=== PATIENT | male | born 1980 | race Caucasian/White ===

== ENCOUNTER 2016-08-12 22:39 | Inpatient (IN) | payer OTHER ==
[~2016-08-12] VITALS: Ht 182.9 cm; Wt 126.7 kg
[2016-08-12] MEDS ORDERED: ceFAZolin 2 GM PREMIX 50 ML ONE (22:40)
[2016-08-12] MEDS ORDERED: DIPHTH/TETANUS/ACEL PERTUSSIS (BOOSTER) 0.5 ML VIAL/PFS IM ONE (22:40)
[2016-08-12] MEDS ORDERED: IOHEXOL 350 MG/ML 10 ML VIAL (for RAD DIAG) IV ONE (22:56)
[2016-08-12 23:00] LABS: I-STAT POTASSIUM 3.3 MMOL/L (3.5-4.9)
[2016-08-12 23:01] LABS: AUTOMATED NEUTROPHIL # 22.4 TH/MM3 (1.8-7.7); BASOPHIL # 0.3 TH/MM3 (0-0.2); BASOPHIL % 1.1 % (0.0-2.0); EOSINOPHIL # 0.3 TH/MM3 (0-0.4); HEMATOCRIT 46.3 % (39.0-51.0); LYMPH % 14.1 % (9.0-44.0); LYMPHOCYTE # 3.9 TH/MM3 (1.0-4.8); MEAN CELL VOLUME 87.4 FL (80.0-100.0); MEAN CORPUSCULAR HEMOGLOBIN 29.3 PG (27.0-34.0); MEAN CORPUSCULAR HGB CONC 33.5 % (32.0-36.0); NEUT % 79.8 % (16.0-70.0); PLATELET COUNT 270 TH/MM3 (150-450); RED CELL DISTRIBUTION WIDTH 13.8 % (11.6-17.2)
[2016-08-12 23:05] LABS: HEMO FLAGS AUTO DIFF
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
[2016-08-12 23:11] LABS: PROTHROMBIN TIME - PATIENT 11.5 SEC (9.8-11.6)
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
[2016-08-12 23:29] LABS: BANDS 14 % (0-6); EOSINOPHILS 1 % (0-4); METAMYELOCYTES 1 % (0-1); POLYS (SEG NEUTROPHILS) 67 % (16-70); WBC DIFF SAMPLE 100
[2016-08-12 23:30] LABS: PLATELET ESTIMATE SMEAR NORMAL (NORMAL); PLATELET MORPHOLOGY NORMAL (NORMAL); SCAN/DIFF FINAL DIFF MANUAL
[2016-08-12] MEDS ORDERED: MISCELLANEOUS NURSING INFORMATION XX SCH (23:30)
[2016-08-12] MEDS ORDERED: ONDANSETRON HCL 4 MG/2 ML VIAL IV PRN (23:30)
[2016-08-12] MEDS ORDERED: SODIUM CHLORIDE 0.9% FLUSH 10 ML FLUSH IV FLUSH PRN (23:30)
[2016-08-12] MEDS ORDERED: CHLORHEXIDINE GLUCONATE 2 % 1 PACK (2 CLOTHS) TOP PRN (23:30)
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
[2016-08-12] MEDS: HYDROmorphone HCL PF 1 MG/ML VIAL IVP PRN (23:47)
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
[2016-08-13] MEDS ORDERED: SILVER SULFADIAZINE 1% CR 50 GM JAR TOPICAL ONE
[2016-08-13] MEDS: LACTATED RINGER'S 1000 ML INJ 1,000 ML IV SCH ×2 (00:58→07:27)
[2016-08-13] MEDS: ENOXAPARIN SODIUM 30 MG/0.3 ML SYRINGE SQ SCH ×2 (01:00→12:26)
[2016-08-13] MEDS: CHLORHEXIDINE GLUCONATE 2 % 1 PACK (2 CLOTHS) TOP SCH (02:26)
[2016-08-13] MEDS ORDERED: SODIUM CHLORID 0.9% 500 ML IV PRN (03:00)
[2016-08-13] MEDS ORDERED: LACTATED RINGER'S 1000 ML IV PRN (03:00)
[2016-08-13] MEDS ORDERED: METOPROLOL TARTRATE 25 MG TAB PO PRN (03:00)
[2016-08-13] MEDS ORDERED: CHLORHEXIDINE GLUCONATE 2 % 1 PACK (2 CLOTHS) TOPICAL PRN (03:00)
[2016-08-13] MEDS ORDERED: POVIDONE IODINE 5% (ANTISEPSIS KIT) 4 APPLICATIONS EACH NARE PRN (03:00)
[2016-08-13] MEDS ORDERED: INSULIN HUMAN REGULAR 1,000 UNITS/10 ML VIAL SQ PRN (03:00)
[2016-08-13] MEDS: HYDROmorphone HCL PF 1 MG/ML VIAL IVP PRN ×3 (03:20→21:12)
[2016-08-13 03:52] VITALS: BP 123/76; PULSE 85; RESP 19; TEMP 96; O2SAT 94
[2016-08-13 06:44] LABS: AUTOMATED NEUTROPHIL # 16.6 TH/MM3 (1.8-7.7); BASOPHIL % 0.2 % (0.0-2.0); HEMATOCRIT 46.1 % (39.0-51.0); HEMO FLAGS DIFF FINAL; LYMPH % 3.5 % (9.0-44.0); LYMPHOCYTE # 0.7 TH/MM3 (1.0-4.8); MEAN CELL VOLUME 87.1 FL (80.0-100.0); MEAN CORPUSCULAR HEMOGLOBIN 29.7 PG (27.0-34.0); MEAN CORPUSCULAR HGB CONC 34.1 % (32.0-36.0); MONO % 8.1 % (0.0-8.0); NEUT % 88.2 % (16.0-70.0); PLATELET COUNT 248 TH/MM3 (150-450); RED BLOOD COUNT 5.29 MIL/MM3 (4.50-5.90); WHITE BLOOD COUNT 18.8 TH/MM3 (4.0-11.0)
[2016-08-13] MEDS: METHOCARBAMOL 500 MG TAB PO SCH ×2 (07:00→21:16)
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
[2016-08-13 07:08] LABS: BICARBONATE 23.2 MEQ/L (21.0-32.0); POTASSIUM 4.5 MEQ/L (3.5-5.1)
[2016-08-13 08:00] VITALS: BP 148/94; PULSE 104; RESP 17; TEMP 97.3; O2SAT 93
[2016-08-13] MEDS: LIDOCAINE HCL 5% PATCH T-DERMAL SCH (09:00)
[2016-08-13] MEDS: FAMOTIDINE 20 MG TAB PO SCH ×2 (09:00→21:16)
[2016-08-13] MEDS: DOCUSATE SODIUM 100 MG/10 ML UDC PO SCH ×2 (09:00→21:16)
--- NOTE | 2016-08-13 09:16 | RADRPT ---
EXAM DATE/TIME: 08/13/2016 08:31 [facility] COMPARISON: CT THORAX W CONTRAST, August 12, 2016, 22:56. CHEST SINGLE AP, August 12, 2016, 22:32. INDICATIONS : Short of breath MEDICAL HISTORY : None. SURGICAL HISTORY : None. ENCOUNTER: Initial ACUITY: 2 days PAIN SCORE: Non-responsive. LOCATION: Bilateral chest FINDINGS: A single view of the chest demonstrates the lungs to be symmetrically aerated without evidence of mas s, infiltrate or effusion. The cardiomediastinal contours are unremarkable. Osseous structures demo nstrate comminuted right scapular fracture with displaced fragments seen, right sixth rib fracture. CONCLUSION: Right scapula and sixth rib fracture. Clear lungs. Kaden Moulton MD on August 13, 2016 at 9:14 Board Certified Radiologist. This report was verified electronically.
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
[2016-08-13] MEDS ORDERED: PROPOFOL 200 MG/20 ML AMP IV ONE (10:13)
[2016-08-13] MEDS ORDERED: ONDANSETRON HCL 4 MG/2 ML VIAL IV PUSH ONE (10:13)
[2016-08-13] MEDS ORDERED: LACTATED RINGER'S 1000 ML INJ 1,000 ML IV ONE (10:14)
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
[2016-08-13 11:51] VITALS: BP 128/83; PULSE 107; RESP 17; TEMP 98.6; O2SAT 92
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
[2016-08-13] MEDS: BACITRACIN TOP OINT 15 GM TUBE TOPICAL SCH (13:00)
--- NOTE | 2016-08-13 14:24 | OTSOAPIP ---
RECEIVED ORDERS FOR OCCUPATIONAL THERAPY FROM SUELLEN ROBERTSON. ATTEMPTED TO SEE PATIENT, HOWEVER PER MARC HENDRICKSON, PATIENT JUST GOT PAIN UNDER CONTROL AND CALM. PATIENT IS ALSO SCHEDULED FOR HAND SURGERY THIS DATE. WILL HOLD AND FOLLOW UP WITH PATIENT FOR EVALUATION POST SURGERY. INTERDISCIPLINARY COMMUNICATION: REVIEWED ELECTRONIC MEDICAL RECORD, SPOKE WITH MARC HENDRICKSON Therapist: Vika Rivers, OTR/L Signature on file
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
[2016-08-13] MEDS ORDERED: BUPIVACAINE HCL PF 0.5% 30 ML VIAL ONE (15:45)
[2016-08-13] MEDS ORDERED: LIDOCAINE HCL 1% 50 ML VIAL ONE (15:46)
[2016-08-13] MEDS ORDERED: ceFAZolin INJ 1,000 MG VIAL IV ONE (16:35)
[2016-08-13] MEDS ORDERED: ACETAMINOPHEN 1000 MG/100 ML VIAL IV ONE (16:55)
[2016-08-13] MEDS ORDERED: SODIUM CHLORIDE 0.9% FLUSH 5 ML FLUSH IVF PRN (17:45)
--- NOTE | 2016-08-13 17:48 | HHI.PR ---
Immediate Post Op Note Procedure Date: Aug 13, 2016 Pre Op Diagnosis: (1) Closed right hand fracture Post Op Diagnosis: (1) Closed right hand fracture Surgeon: Radha Gil Tarp Repairer(s): None. Procedure: Closed reduction and percutaneous fixation of the right thumb, index, middle, ring and fifth carpometacarpal fracture dislocations. Anesthesia: General Drains: None Tourniquet time (min at mmHg) NA Patient to: PACU Patient Condition: Good Implant/Devices: SEE IMPLANT LOG (if applicable) Date/Time of Procedure: SEE SURGICAL CARE RECORD Radha Gil MD Aug 13, 2016 17:48
[2016-08-13] MEDS ORDERED: DO NOT ADM ANY ANTICOAGULANT DRUGS PRN (17:51)
[2016-08-13] MEDS: DEXT 5%-NACL 0.45% 1000 ML INJ 1,000 ML IV SCH (18:00)
[2016-08-13] MEDS ORDERED: fentaNYL CITRATE 250 MCG/5 ML AMP ONE (18:08)
[2016-08-13] MEDS: SODIUM CHLORIDE 0.9% FLUSH 5 ML FLUSH IVF SCH (21:00)
[2016-08-13] MEDS: MAGNESIUM HYDROXIDE SUSP 30 ML CUP PO SCH (21:16)
[2016-08-13 21:42] VITALS: BP 112/86; PULSE 97; RESP 22; TEMP 97.3; O2SAT 92
[2016-08-13] MEDS ORDERED: HALOPERIDOL LACTATE 5 MG/ML AMP IV PRN ×2 (23:15)
[2016-08-14] VITALS (7 sets, daily range): BP systolic 116–148; BP diastolic 76–86; PULSE 88–120; RESP 16–22; TEMP 97.9–99.4; O2SAT 88–96
[2016-08-14] MEDS: HYDROmorphone HCL PF 1 MG/ML VIAL IVP PRN ×7 (00:15→23:59)
[2016-08-14] MEDS: ENOXAPARIN SODIUM 30 MG/0.3 ML SYRINGE SQ SCH ×3 (00:16→23:59)
[2016-08-14] MEDS: DEXT 5%-NACL 0.45% 1000 ML INJ 1,000 ML IV SCH ×3 (03:19→23:43)
[2016-08-14] MEDS: CHLORHEXIDINE GLUCONATE 2 % 1 PACK (2 CLOTHS) TOP SCH (04:00)
[2016-08-14] MEDS: METHOCARBAMOL 500 MG TAB PO SCH ×3 (04:37→21:38)
[2016-08-14 05:57] LABS: AUTOMATED NEUTROPHIL # 12.6 TH/MM3 (1.8-7.7); BASOPHIL # 0.1 TH/MM3 (0-0.2); BASOPHIL % 0.4 % (0.0-2.0); EOSINOPHIL % 0.2 % (0.0-4.0); HEMO FLAGS DIFF FINAL; LYMPH % 11.6 % (9.0-44.0); LYMPHOCYTE # 1.9 TH/MM3 (1.0-4.8); MEAN CELL VOLUME 87.6 FL (80.0-100.0); MEAN CORPUSCULAR HEMOGLOBIN 29.8 PG (27.0-34.0); MONO % 9.9 % (0.0-8.0); NEUT % 77.9 % (16.0-70.0); PLATELET COUNT 194 TH/MM3 (150-450); RED BLOOD COUNT 4.68 MIL/MM3 (4.50-5.90); RED CELL DISTRIBUTION WIDTH 14.1 % (11.6-17.2); WHITE BLOOD COUNT 16.3 TH/MM3 (4.0-11.0)
[2016-08-14 06:32] LABS: ALKALINE PHOSPHATASE 53 U/L (45-117); ALT (GPT) 53 U/L (12-78); ANION GAP 7 MEQ/L (5-15); AST (GOT) 67 U/L (15-37); BLOOD UREA NITROGEN 24 MG/DL (7-18); CHLORIDE 107 MEQ/L (98-107); GLOMERULAR FILTRATION RATE 82 ML/MIN (>89); MAGNESIUM 2.6 MG/DL (1.5-2.5); POTASSIUM 4.1 MEQ/L (3.5-5.1); SODIUM (NA) 139 MEQ/L (136-145); TOTAL BILIRUBIN ADULT 0.8 MG/DL (0.2-1.0)
--- NOTE | 2016-08-14 06:34 | RADRPT ---
EXAM DATE/TIME: 08/14/2016 05:32 [facility] COMPARISON: CHEST SINGLE AP, August 13, 2016, 8:31. INDICATIONS : Shortness of breath, possible pulmonary disease. MEDICAL HISTORY : None. SURGICAL HISTORY : None. ENCOUNTER: Subsequent ACUITY: 3 days PAIN SCORE: 7/10 LOCATION: Bilateral chest FINDINGS: The cardiac silhouette is enlarged in transverse diameter. There is prominence of the central pulmona ry vasculature with indistinct vascular margins compatible with vascular congestion but no evidence o f overt failure. There is subsegmental atelectasis in the left base. CONCLUSION: 1. Cardiomegaly and findings of vascular congestion without overt failure. There has been no signific ant change when compared to the prior exam. Rian Phillips MD on August 14, 2016 at 6:31 Board Certified Radiologist. This report was verified electronically.
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
[2016-08-14] MEDS: DOCUSATE SODIUM 100 MG/10 ML UDC PO SCH ×2 (08:56→21:38)
[2016-08-14] MEDS: FAMOTIDINE 20 MG TAB PO SCH ×2 (08:56→21:38)
[2016-08-14] MEDS: LACTULOSE SYRUP 20 GM/30 ML CUP PO SCH (08:56)
[2016-08-14] MEDS: SODIUM CHLORIDE 0.9% FLUSH 5 ML FLUSH IVF SCH ×2 (09:00→21:00)
[2016-08-14] MEDS: BACITRACIN TOP OINT 15 GM TUBE TOPICAL SCH ×2 (09:16→21:36)
[2016-08-14] MEDS: LIDOCAINE HCL 5% PATCH T-DERMAL SCH (09:36)
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
--- NOTE | 2016-08-14 12:59 | RADRPT ---
EXAM DATE/TIME: 08/14/2016 12:19 [facility] COMPARISON: No previous studies available for comparison. INDICATIONS : RETIREMENT. MEDICAL HISTORY : None. SURGICAL HISTORY : None. ENCOUNTER: Subsequent ACUITY: 1 day PAIN SCORE: 10/10 LOCATION: Left Humerus FINDINGS: No definite fractures, or dislocations are identified. No definite lytic or sclerotic lesion is seen . CONCLUSION: Unremarkable study. Jennifer Anand MD on August 14, 2016 at 12:57 Board Certified Radiologist. This report was verified electronically.
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
--- NOTE | 2016-08-14 13:00 | RADRPT ---
EXAM DATE/TIME: 08/14/2016 12:25 [facility] COMPARISON: No previous studies available for comparison. INDICATIONS : INTERMEDIATE. left shoulder pain. MEDICAL HISTORY : None. SURGICAL HISTORY : None. ENCOUNTER: Subsequent ACUITY: 3 days PAIN SCORE: Non-responsive. LOCATION: Left Shoulder FINDINGS: No definite fractures, or dislocations are identified. No definite lytic or sclerotic lesion is seen . CONCLUSION: Unremarkable study. Jennifer Anand MD on August 14, 2016 at 12:58 Board Certified Radiologist. This report was verified electronically.
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
--- NOTE | 2016-08-14 13:11 | RADRPT ---
EXAM DATE/TIME: 08/14/2016 12:44 [facility] COMPARISON: CT BRAIN W/O CONTRAST, August 12, 2016, 22:56. CT FACIAL BONES W/O CONTRAST, August 14, 2016, 7:55. INDICATIONS : Increased confusion. RADIATION DOSE: 56.35 CTDIvol (mGy) MEDICAL HISTORY : PTSD, TBI. SURGICAL HISTORY : None. ENCOUNTER: Initial ACUITY: 1 day PAIN SCALE: Non-responsive LOCATION: cranial TECHNIQUE: Multiple contiguous axial images were obtained of the head. Using automated exposure control and adj ustment of the mA and/or kV according to patient size, radiation dose was kept as low as reasonably a chievable to obtain optimal diagnostic quality images. FINDINGS: There is no evidence for intracranial hemorrhage, mass effect, mass lesions, edema, or extra-axial fl uid collections. The visualized bony structures appear intact. The ventricles are normal size for t he patient's age. There are no signs of acute infarction for technique. There is a fracture of the i ntralobar rim on the right discussed on the patient's prior facial CT. CONCLUSION: There is no evidence of any significant hemorrhage or mass effect. Jennifer Anand MD on August 14, 2016 at 13:07 Board Certified Radiologist. This report was verified electronically.
[2016-08-14] MEDS ORDERED: RESP: ALBUTEROL 2.5 MG/IPRATROPIUM 0.5 MG NEB (PRN) NEB (14:30)
--- NOTE | 2016-08-14 17:32 | OTSOAPIP ---
PATIENT IS S/P SURGERY. ATTEMPTED TO SEE PATIENT, HOWEVER MARC CARLOS REQUESTS TO HOLD THERAPY PATIENT HAS BEEN COMBATIVE AND RESTLESS ALL DAY. WILL FOLLOW UP NEXT DAY ABLE. INTERDISCIPLINARY COMMUNICATION: REVIEWED ELECTRONIC MEDICAL RECORD, SPOKE WITH RN Therapist: Vika Rivers, OTR/L Signature on file
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
[2016-08-14] MEDS: RESP: ALBUTEROL 2.5 MG/IPRATROPIUM 0.5 MG NEB (SCH) NEB (19:02)
[2016-08-14] MEDS: MAGNESIUM HYDROXIDE SUSP 30 ML CUP PO SCH (21:38)
[2016-08-15] VITALS (8 sets, daily range): BP systolic 141–147; BP diastolic 76–86; PULSE 83–103; RESP 16–18; TEMP 96.1–99.4; O2SAT 92–96
[2016-08-15] MEDS: CHLORHEXIDINE GLUCONATE 2 % 1 PACK (2 CLOTHS) TOP SCH (02:43)
[2016-08-15] MEDS: HYDROmorphone HCL PF 1 MG/ML VIAL IVP PRN ×3 (04:36→23:16)
[2016-08-15] MEDS: METHOCARBAMOL 500 MG TAB PO SCH ×3 (04:37→21:26)
--- NOTE | 2016-08-15 06:43 | RADRPT ---
EXAM DATE/TIME: 08/15/2016 05:39 [facility] COMPARISON: CHEST SINGLE AP, August 14, 2016, 5:32. INDICATIONS : Shortness of breath, possible pulmonary disease. MEDICAL HISTORY : None. SURGICAL HISTORY : None. ENCOUNTER: Subsequent ACUITY: 4 - 6 days PAIN SCORE: 10/10 LOCATION: Bilateral chest FINDINGS: The cardiac silhouette is normal in transverse diameter. There is left lower lobe atelectasis versus pneumonia. There is elevation of the right hemidiaphragm. The right lung is free of acute parenchymal opacity. CONCLUSION: 1. Left lower lobe atelectasis versus pneumonia. There has been no significant change when compared t o the prior exam. Rian Phillips MD on August 15, 2016 at 6:41 Board Certified Radiologist. This report was verified electronically.
[2016-08-15 07:44] LABS: AUTOMATED NEUTROPHIL # 8.3 TH/MM3 (1.8-7.7); BASOPHIL % 0.4 % (0.0-2.0); EOSINOPHIL # 0.1 TH/MM3 (0-0.4); EOSINOPHIL % 0.5 % (0.0-4.0); HEMATOCRIT 36.4 % (39.0-51.0); HEMO FLAGS DIFF FINAL; LYMPH % 16.1 % (9.0-44.0); LYMPHOCYTE # 1.8 TH/MM3 (1.0-4.8); MEAN CELL VOLUME 86.7 FL (80.0-100.0); MEAN CORPUSCULAR HEMOGLOBIN 30.1 PG (27.0-34.0); MEAN CORPUSCULAR HGB CONC 34.7 % (32.0-36.0); MONO % 9.5 % (0.0-8.0); NEUT % 73.5 % (16.0-70.0); PLATELET COUNT 195 TH/MM3 (150-450); RED CELL DISTRIBUTION WIDTH 13.6 % (11.6-17.2); WHITE BLOOD COUNT 11.3 TH/MM3 (4.0-11.0)
[2016-08-15 08:06] LABS: ALT (GPT) 54 U/L (12-78); ANION GAP 6 MEQ/L (5-15); AST (GOT) 87 U/L (15-37); BLOOD UREA NITROGEN 18 MG/DL (7-18); CHLORIDE 105 MEQ/L (98-107); GLOMERULAR FILTRATION RATE 120 ML/MIN (>89); MAGNESIUM 2.4 MG/DL (1.5-2.5); POTASSIUM 4.1 MEQ/L (3.5-5.1); SODIUM (NA) 138 MEQ/L (136-145)
[2016-08-15 08:08] LABS: ALKALINE PHOSPHATASE 58 U/L (45-117)
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
[2016-08-15] MEDS: SODIUM CHLORIDE 0.9% FLUSH 5 ML FLUSH IVF SCH ×2 (09:00→21:00)
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
[2016-08-15] MEDS: RESP: ALBUTEROL 2.5 MG/IPRATROPIUM 0.5 MG NEB (SCH) NEB ×3 (09:39→20:13)
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
[2016-08-15] MEDS: DOCUSATE SODIUM 100 MG/10 ML UDC PO SCH ×2 (11:49→21:25)
[2016-08-15] MEDS: LACTULOSE SYRUP 20 GM/30 ML CUP PO SCH (11:49)
[2016-08-15] MEDS: LIDOCAINE HCL 5% PATCH T-DERMAL SCH (11:50)
[2016-08-15] MEDS: FAMOTIDINE 20 MG TAB PO SCH ×2 (11:50→21:26)
[2016-08-15] MEDS: BACITRACIN TOP OINT 15 GM TUBE TOPICAL SCH ×2 (11:50→21:00)
[2016-08-15] MEDS: ENOXAPARIN SODIUM 30 MG/0.3 ML SYRINGE SQ SCH ×2 (11:51→23:15)
[2016-08-15] MEDS: MAGNESIUM HYDROXIDE SUSP 30 ML CUP PO SCH (21:26)
[2016-08-16] VITALS: BP 127/81; PULSE 95; RESP 22; TEMP 98.7; O2SAT 93
[2016-08-16] MEDS: HYDROmorphone HCL PF 1 MG/ML VIAL IVP PRN ×2 (03:47→08:48)
[2016-08-16 04:00] VITALS: BP 142/97; PULSE 90; RESP 20; TEMP 97.6; O2SAT 93
[2016-08-16] MEDS: METHOCARBAMOL 500 MG TAB PO SCH ×3 (06:59→20:41)
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
[2016-08-16 07:47] LABS: AUTOMATED NEUTROPHIL # 5.7 TH/MM3 (1.8-7.7); BASOPHIL # 0.1 TH/MM3 (0-0.2); BASOPHIL % 0.9 % (0.0-2.0); EOSINOPHIL # 0.2 TH/MM3 (0-0.4); EOSINOPHIL % 1.8 % (0.0-4.0); HEMO FLAGS DIFF FINAL; LYMPH % 19.9 % (9.0-44.0); LYMPHOCYTE # 1.7 TH/MM3 (1.0-4.8); MEAN CELL VOLUME 87.2 FL (80.0-100.0); MEAN CORPUSCULAR HGB CONC 33.3 % (32.0-36.0); MONO % 10.1 % (0.0-8.0); NEUT % 67.3 % (16.0-70.0); PLATELET COUNT 232 TH/MM3 (150-450); RED BLOOD COUNT 4.35 MIL/MM3 (4.50-5.90); RED CELL DISTRIBUTION WIDTH 13.7 % (11.6-17.2); WHITE BLOOD COUNT 8.5 TH/MM3 (4.0-11.0)
[2016-08-16 08:00] VITALS: BP 140/76; PULSE 80; RESP 18; TEMP 97.7; O2SAT 93
[2016-08-16] MEDS ORDERED: BISACODYL 10 MG SUPP RECTAL ONE (08:00)
[2016-08-16] MEDS ORDERED: BISACODYL EC 5 MG TABEC PO ONE (08:00)
[2016-08-16 08:06] LABS: ALKALINE PHOSPHATASE 55 U/L (45-117); ALT (GPT) 48 U/L (12-78); ANION GAP 6 MEQ/L (5-15); AST (GOT) 44 U/L (15-37); BICARBONATE 28.7 MEQ/L (21.0-32.0); BLOOD UREA NITROGEN 22 MG/DL (7-18); CHLORIDE 104 MEQ/L (98-107); GLOMERULAR FILTRATION RATE 97 ML/MIN (>89); MAGNESIUM 2.5 MG/DL (1.5-2.5); POTASSIUM 3.8 MEQ/L (3.5-5.1); SODIUM (NA) 139 MEQ/L (136-145); TOTAL BILIRUBIN ADULT 0.9 MG/DL (0.2-1.0)
[2016-08-16] MEDS: RESP: ALBUTEROL 2.5 MG/IPRATROPIUM 0.5 MG NEB (SCH) NEB (08:34)
[2016-08-16] MEDS: DOCUSATE SODIUM 100 MG/10 ML UDC PO SCH ×2 (08:48→20:41)
[2016-08-16] MEDS: FAMOTIDINE 20 MG TAB PO SCH ×2 (08:48→20:41)
[2016-08-16] MEDS: LACTULOSE SYRUP 20 GM/30 ML CUP PO SCH (08:48)
[2016-08-16] MEDS: LIDOCAINE HCL 5% PATCH T-DERMAL SCH (08:49)
[2016-08-16] MEDS: BACITRACIN TOP OINT 15 GM TUBE TOPICAL SCH ×2 (08:49→21:00)
[2016-08-16] MEDS: POLYETHYLENE GLYCOL 17 GM PKG PO SCH (08:51)
[2016-08-16] MEDS: SODIUM CHLORIDE 0.9% FLUSH 5 ML FLUSH IVF SCH ×2 (08:52→20:40)
[2016-08-16] MEDS ORDERED: WHEEMIS3 (11:26)
[2016-08-16] MEDS ORDERED: DOCU100S PO (11:29)
[2016-08-16] MEDS ORDERED: MILKSUS PO (11:29)
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
[2016-08-16] MEDS ORDERED: oxyCODONE/ACETAMINOPHEN 5 MG/325 MG TAB PO PRN (11:45)
[2016-08-16 12:00] VITALS: BP 121/74; PULSE 87; RESP 18; TEMP 97.3; O2SAT 95
--- NOTE | 2016-08-16 14:11 | PD.PLAS.PN ---
Subjective Remarks Patient is asleep. Objective Vital Signs Date Time Temp Pulse Resp B/P Pulse Ox O2 Delivery O2 Flow Rate FiO2 08/16/16 12:00 97.3 87 18 121/74 95 08/16/16 09:23 20 08/16/16 08:00 97.7 80 18 140/76 93 08/16/16 04:00 97.6 90 20 142/97 93 08/16/16 00:00 98.7 95 22 127/81 93 08/15/16 21:00 96.1 93 16 141/82 93 08/15/16 20:15 95 21 08/15/16 16:00 99.4 95 18 145/86 95 I/O 08/15/16 08/15/16 08/15/16 08/16/16 08/16/16 08/16/16 07:00 15:00 23:00 07:00 15:00 23:00 Intake Total 360 ml 240 ml 100 ml 320 ml Output Total 350 ml 600 ml Balance 10 ml 240 ml 100 ml -280 ml Intake Oral 360 ml 240 ml 100 ml 320 ml Output Urine Total 350 ml 600 ml # Voids 2 3 # Bowel Movements 0 Laboratory Tests Test 08/16/16 07:21 White Blood Count 8.5 Red Blood Count 4.35 Hemoglobin 12.6 Hematocrit 38.0 Mean Corpuscular Volume 87.2 Mean Corpuscular Hemoglobin 29.0 Mean Corpuscular Hemoglobin 33.3 Concent Red Cell Distribution Width 13.7 Platelet Count 232 Mean Platelet Volume 8.7 Neutrophils (%) (Auto) 67.3 Lymphocytes (%) (Auto) 19.9 Monocytes (%) (Auto) 10.1 Eosinophils (%) (Auto) 1.8 Basophils (%) (Auto) 0.9 Neutrophils # (Auto) 5.7 Lymphocytes # (Auto) 1.7 Monocytes # (Auto) 0.9 Eosinophils # (Auto) 0.2 Basophils # (Auto) 0.1 CBC Comment DIFF FINAL Differential Comment Sodium Level 139 Potassium Level 3.8 Chloride Level 104 Carbon Dioxide Level 28.7 Anion Gap 6 Blood Urea Nitrogen 22 Creatinine 0.89 Estimat Glomerular Filtration 97 Rate Random Glucose 115 Calcium Level 8.2 Magnesium Level 2.5 Total Bilirubin 0.9 Aspartate Amino Transf 44 (AST/SGOT) Alanine Aminotransferase 48 (ALT/SGPT) Alkaline Phosphatase 55 Total Protein 6.3 Albumin 2.6 Result Diagram: 08/16/16 0721 08/16/16720 Exam Findings The patient is lying comfortably. Splint is in place and has been rewrapped with velvet bandage and tape. Fingers are warm and well perfused. There is swelling to the fingers. Assessment and Plan Diagnosis: (1) Closed right hand fracture Assessment and Plan The splint is left in place. X-rays are ordered to evaluate postoperative pin position. Macrina Kasper Aug 16, 2016 14:11
[2016-08-16] MEDS: oxyCODONE/ACETAMINOPHEN 5 MG/325 MG TAB PO PRN ×2 (14:34→23:07)
[2016-08-16] MEDS: ENOXAPARIN SODIUM 30 MG/0.3 ML SYRINGE SQ SCH (14:35)
[2016-08-16 16:00] VITALS: BP 139/80; PULSE 68; RESP 18; TEMP 98; O2SAT 94
--- NOTE | 2016-08-16 17:32 | RADRPT ---
EXAM DATE/TIME: 08/16/2016 17:09 [place] COMPARISON: WRIST RIGHT LIMITED(AP & LAT), August 12, 2016, 22:32. INDICATIONS : Post op right wrist. MEDICAL HISTORY : None. SURGICAL HISTORY : None. ENCOUNTER: Initial ACUITY: 1 day PAIN SCORE: 10/10 LOCATION: Right wrist. FINDINGS: There are fractures of the ulnar styloid, second and third metacarpal bone with multiple surgical pin s in place. There is gross anatomical alignment. Previously seen dislocation has been reduced. CONCLUSION: Reduction of previously seen dislocation. Jennifer Anand MD on August 16, 2016 at 17:29 Board Certified Radiologist. This report was verified electronically.
[2016-08-16 20:38] VITALS: BP 155/79; PULSE 88; RESP 20; TEMP 97.9; O2SAT 99
[2016-08-16] MEDS: MAGNESIUM HYDROXIDE SUSP 30 ML CUP PO SCH (20:41)
[2016-08-17 00:48] VITALS: BP 151/89; PULSE 101; RESP 20; TEMP 98.4; O2SAT 93
[2016-08-17] MEDS: ENOXAPARIN SODIUM 30 MG/0.3 ML SYRINGE SQ SCH ×3 (00:51→23:46)
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
[2016-08-17] MEDS: METHOCARBAMOL 500 MG TAB PO SCH ×3 (06:42→21:30)
[2016-08-17 08:00] VITALS: BP 140/87; PULSE 90; RESP 18; TEMP 97.8; O2SAT 92
[2016-08-17] MEDS: FAMOTIDINE 20 MG TAB PO SCH ×2 (08:04→21:28)
[2016-08-17] MEDS: oxyCODONE/ACETAMINOPHEN 5 MG/325 MG TAB PO PRN ×4 (08:05→23:46)
[2016-08-17] MEDS: LIDOCAINE HCL 5% PATCH T-DERMAL SCH (08:05)
[2016-08-17] MEDS: POLYETHYLENE GLYCOL 17 GM PKG PO SCH (08:06)
[2016-08-17] MEDS: BACITRACIN TOP OINT 15 GM TUBE TOPICAL SCH ×2 (08:06→21:28)
[2016-08-17] MEDS: DOCUSATE SODIUM 100 MG/10 ML UDC PO SCH ×2 (08:06→21:28)
[2016-08-17] MEDS: LACTULOSE SYRUP 20 GM/30 ML CUP PO SCH (08:06)
[2016-08-17] MEDS: SODIUM CHLORIDE 0.9% FLUSH 5 ML FLUSH IVF SCH ×2 (08:07→21:00)
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
[2016-08-17 12:00] VITALS: BP 147/84; PULSE 79; RESP 18; TEMP 98; O2SAT 96
[2016-08-17] MEDS ORDERED: HOSP BED2 (12:47)
[2016-08-17] MEDS ORDERED: WALKER WHEELS/F1 MIS (12:47)
[2016-08-17] MEDS ORDERED: MISC-163 (12:47)
[2016-08-17] MEDS ORDERED: PLATMIS3 (12:47)
[2016-08-17 16:48] VITALS: BP 156/80; PULSE 66; RESP 17; TEMP 97.4; O2SAT 96
[2016-08-17 20:30] VITALS: BP 131/71; PULSE 67; RESP 15; TEMP 97.4; O2SAT 93
[2016-08-17] MEDS: MAGNESIUM HYDROXIDE SUSP 30 ML CUP PO SCH (21:28)
[2016-08-18 00:13] VITALS: BP 161/87; PULSE 86; RESP 20; TEMP 99; O2SAT 93
[2016-08-18] MEDS: METHOCARBAMOL 500 MG TAB PO SCH ×2 (05:36→13:22)
[2016-08-18 08:00] VITALS: BP 160/91; PULSE 71; RESP 18; TEMP 96.6; O2SAT 94
[2016-08-18] MEDS: DOCUSATE SODIUM 100 MG/10 ML UDC PO SCH (08:05)
[2016-08-18] MEDS: LACTULOSE SYRUP 20 GM/30 ML CUP PO SCH (08:05)
[2016-08-18] MEDS: oxyCODONE/ACETAMINOPHEN 5 MG/325 MG TAB PO PRN ×2 (08:06→13:26)
[2016-08-18] MEDS: BACITRACIN TOP OINT 15 GM TUBE TOPICAL SCH (08:06)
[2016-08-18] MEDS: FAMOTIDINE 20 MG TAB PO SCH (08:06)
[2016-08-18] MEDS: POLYETHYLENE GLYCOL 17 GM PKG PO SCH (08:06)
[2016-08-18] MEDS: LIDOCAINE HCL 5% PATCH T-DERMAL SCH (08:07)
[2016-08-18] MEDS: SODIUM CHLORIDE 0.9% FLUSH 5 ML FLUSH IVF SCH (08:13)
[2016-08-18 12:00] VITALS: BP 129/72; PULSE 79; RESP 18; TEMP 97.3; O2SAT 93
[2016-08-18] MEDS ORDERED: LACT10SO PO (12:32)
[2016-08-18] MEDS ORDERED: FAMO20TA2 PO (12:32)
[2016-08-18] MEDS ORDERED: ENOX30P SQ (12:32)
[2016-08-18] MEDS ORDERED: OXYC1TAB63 PO (12:32)
[2016-08-18] MEDS ORDERED: POLY17S PO (12:32)
[2016-08-18] MEDS ORDERED: LIDO5DIS35 T-DERMAL (12:32)
[2016-08-18] MEDS ORDERED: METH500T3 PO (12:32)
[2016-08-18] MEDS ORDERED: BACI500O2 TOPICAL (12:32)
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
[2016-08-18] MEDS: ENOXAPARIN SODIUM 30 MG/0.3 ML SYRINGE SQ SCH (13:22)
[2016-08-20] MEDS ORDERED: [UNRECOGNIZED DRUG - OTHER] (12:40)
[2016-08-20] MEDS ORDERED: COMMODE 3-IN-11 MIS (12:40)
[2016-08-20] MEDS ORDERED: WHEEMIS3 (12:40)
[2016-08-20] MEDS ORDERED: FAMO20TA2 PO (14:35)
[2016-08-20] MEDS ORDERED: FENT25T T-DERMAL (14:35)
[2016-08-20] MEDS ORDERED: POLY17S PO (14:35)
[2016-08-20] MEDS ORDERED: BUSP10TA PO (14:35)
[2016-08-20] MEDS ORDERED: BACI500O2 TOPICAL (14:35)
[2016-08-20] MEDS ORDERED: OXYC1TAB35 PO (14:35)
[2016-08-20] MEDS ORDERED: XARE10TA PO (14:35)
[2016-08-20] MEDS ORDERED: SILV1CRE20 TOPICAL (14:45)
[2016-08-25] MEDS ORDERED: BACT800T5 PO (10:40)
[2016-08-25] MEDS ORDERED: DOXY100C PO (10:40)
== END 2016-08-18 15:13 | DRG 513 ==
LOC: NEPI 22:39 → EDBD 23:41 → NEDA 23:41 → N06B 08-13 01:03 → N06A 08-13 15:26
PROVIDERS: ADMIT Surgery Trauma Surgery; ATTEND Surgery Trauma Surgery
PROC: 3E0T3CZ (ICD-10-PCS; 2016-08-13)
PROC: 3E0T3CZ (ICD-10-PCS; 2016-08-13)
PROC: 3E0T3CZ (ICD-10-PCS; 2016-08-13)
PROC: 0PSM04Z Reposition Right Carpal with Internal Fixation Device, Open Approach (ICD-10-PCS; principal; 2016-08-13 16:05)
DX: S63.044A Dislocation of carpometacarpal joint of right thumb, initial encounter (principal); S02.19XA Other fracture of base of skull, initial encounter for closed fracture; S02.31XA Fracture of orbital floor, right side, initial encounter for closed fracture; S52.611A Displaced fracture of right ulna styloid process, initial encounter for closed fracture; S62.101A Fracture of unspecified carpal bone, right wrist, initial encounter for closed fracture; S63.051A Subluxation of other carpometacarpal joint of right hand, initial encounter; F43.10 Post-traumatic stress disorder, unspecified; V28.4XXA Motorcycle driver injured in noncollision transport accident in traffic accident, initial encounter; S63.014A Dislocation of distal radioulnar joint of right wrist, initial encounter; S42.111A Displaced fracture of body of scapula, right shoulder, initial encounter for closed fracture; S00.81XA Abrasion of other part of head, initial encounter; S40.211A Abrasion of right shoulder, initial encounter; S40.811A Abrasion of right upper arm, initial encounter; S80.812A Abrasion, left lower leg, initial encounter; S80.811A Abrasion, right lower leg, initial encounter; S00.211A Abrasion of right eyelid and periocular area, initial encounter; Y99.9 Unspecified external cause status; Y92.488 Other paved roadways as the place of occurrence of the external cause; Y93.89 Activity, other specified
CPT/HCPCS: 29125; 70450; 70486; 71010; 71260; 72125; 72128; 72131; 72170; 73030; 73060; 73100; 73110; 73200; 73590; 73600; 73700; 74177; 76000; 80048; 80053; 80307; 82435; 82565; 82947; 83735; 84132; 84295; 84520; 85007; 85025; 85027; 85610; 85730; 86850; 86900; 86901; 90471; 90715; 94640; 94664; 94667; 94668; 96374; 96375; J0131; J0690; J1170; J1630; J1650; J2405; J3010; J7120; L0150; L2114; Q9967